=== PATIENT | male | born 1990 | race Caucasian/White ===

== ENCOUNTER 2019-09-13 19:26 | Emergency (ER) | payer OTHER ==
[2019-09-13] MEDS ORDERED: NA CHLORIDE 0.9% 1,000 ML ONE (20:39)
[2019-09-13 21:19] LABS: Absolute Lymphocytes (CBC) 2.6 K/uL (0.7-4.9); Basophils % 1.1 % (0-1.3); Lymphocytes % 26.8 % (15.3-44.8); MPV 8.5 fL (7.6-11.3)
[2019-09-13 21:21] LABS: Albumin 3.9 g/dL (3.4-5.0); Bilirubin Direct 0.2 mg/dL (0-0.2); Bilirubin Total 0.8 mg/dL (0.2-1.0); Potassium 3.4 mmol/L (3.5-5.1); Protein, Total 7.4 g/dL (6.4-8.2)
[2019-09-13] MEDS ORDERED: CLINDAMYCIN 900MG/D5W 900 MG/50 ML IVPB IV ONE (23:08)
--- NOTE | 2019-09-13 23:26 | ER ---
Nurse's Notes [facility] Name: Shirley Houston Age: 29 yrs Sex: Male : 1990 Arrival Date: 09/13/2019 Time: 19:36 Bed 26 Private MD: Diagnosis: Cellulitis of abdominal wall Presentation: 09/13 20:04 Presenting complaint: Patient states: Redness and pain to the umbilical area since aj1 yesterday. Denies fever. Denies N/V/D. Transition of care: patient was not received from another setting of care. Onset of symptoms was September 2019. Risk Assessment: Do you want to hurt yourself or someone else? Patient reports no desire to harm self or others. Initial Sepsis Screen: Does the patient meet any 2 criteria? No. Patient's initial sepsis screen is negative. Does the patient have a suspected source of infection? No. Patient's initial sepsis screen is negative. Care prior to arrival: None. 20:04 Method Of Arrival: Ambulatory aj1 20:04 Acuity: LARY 3 aj1 Triage Assessment: 20:06 General: Appears in no apparent distress. comfortable, Behavior is calm, cooperative, aj1 appropriate for age. Pain: Complains of pain in umbilical area Pain currently is 6 out of 10 on a pain scale. Neuro: Level of Consciousness is awake, alert, obeys commands. Cardiovascular: Patient's skin is warm and dry. Respiratory: Airway is patent Respiratory effort is even, unlabored, Respiratory pattern is regular, symmetrical. GI: Patient currently denies diarrhea, nausea, vomiting. Historical: - Allergies: 20:06 No Known Allergies; aj1 - Home Meds: 20:06 None [Active]; aj1 - PMHx: 20:06 None; aj1 - PSHx: 20:06 None; aj1 - Immunization history:: Flu vaccine is not up to date. - Social history:: Smoking status: Patient/guardian denies using tobacco. - Ebola Screening: : Patient denies travel to an Ebola-affected area in the 21 days before illness onset. Screenin:19 Abuse screen: Denies threats or abuse. Denies injuries from another. Nutritional aa1 screening: No deficits noted. Tuberculosis screening: No symptoms or risk factors identified. Fall Risk None identified. Assessment: 20:19 General: Appears in no apparent distress. comfortable, Behavior is calm, cooperative, aa1 appropriate for age. Pain: Complains of pain in umbilical area Quality of pain is described as stinging, Pain began 1 day ago. Neuro: Level of Consciousness is awake, alert, obeys commands, Oriented to person, place, time, situation, Moves all extremities. Full function Gait is steady. Respiratory: Airway is patent Respiratory effort is even, unlabored, Respiratory pattern is regular, symmetrical. GI: Abdomen is non-distended, Abd is soft and non tender X 4 quads. Reports tenderness around umbilicus Patient currently denies constipation, diarrhea, nausea, vomiting. : No signs and/or symptoms were reported regarding the genitourinary system. EENT: No signs and/or symptoms were reported regarding the EENT system. Derm: Skin is intact, is healthy with good turgor, Skin is pink, warm \T\ dry. redness noted around umbilicus. Musculoskeletal: Circulation, motion, and sensation intact. Capillary refill < 3 seconds. 21:30 Reassessment: Patient appears in no apparent distress at this time. Patient and/or aa1 family updated on plan of care and expected duration. Pain level reassessed. Patient is alert, oriented x 3, equal unlabored respirations, skin warm/dry/pink. Awaiting CT scan. 22:33 Reassessment: Patient appears in no apparent distress at this time. Patient and/or aa1 family updated on plan of care and expected duration. Pain level reassessed. Patient is alert, oriented x 3, equal unlabored respirations, skin warm/dry/pink. Awaiting CT results. 22:40 Reassessment: Pt reports he noticed some liquid in his navel. Upon inspections foul aa1 smelling purulent drainage noted. Sterile q-tip placed inside navel and approx 3 ml purulent fluid drained out from navel. PA notified. Vital Signs: 20:06 BP 132 / 78; Pulse 65; Resp 16; Temp 97.8; Pulse Ox 100% on R/A; Weight 111.58 kg (R); aj1 Height 6 ft. 3 in. (190.50 cm) (R); 21:08 BP 130 / 73; Pulse 55; Resp 16; Pulse Ox 100% on R/A; Pain 3/10; aa1 20:06 Body Mass Index 30.75 (111.58 kg, 190.50 cm) aj1 ED Course: 19:36 Patient arrived in ED. cf2 20:05 Triage completed. aj1 20:06 Arm band placed on Patient placed in an exam room. aj1 20:10 Johann Daniel PA is PHCP. cp 20:10 Yoan Hwang MD is Attending Physician. cp 20:19 Patient has correct armband on for positive identification. Bed in low position. Call aa1 light in reach. Pulse ox on. NIBP on. 20:20 Annie Pinto, RN is Primary Nurse. aa1 20:49 Radiology exam delayed due to lab results not completed at this time. (BUN/Creatinine). vm2 20:50 Initial lab(s) drawn, by me, sent to lab. Inserted saline lock: 20 gauge in right aa1 antecubital area, using aseptic technique. Blood collected. 22:03 CT Abd/Pelvis - IV Contrast Only In Process Unspecified. EDMS 22:47 Wound culture swab sent to lab. aa1 22:58 Report given to Dre Ferraro RN. aa1 23:01 Dre Ferraro, IRAJ is Primary Nurse. tr5 23:25 Bryce Ritter MD is Referral Physician. cp 23:51 No provider procedures requiring assistance completed. IV discontinued. tr5 Administered Medications: 20:50 Drug: NS 0.9% 1000 ml Route: IV; Rate: 1 bolus; Site: right antecubital; aa1 22:02 Follow up: IV Status: Completed infusion; IV Intake: 1000ml aa1 23:22 Drug: Clindamycin 900 mg Route: IVPB; Infused Over: 30 mins; Site: right antecubital; tr5 23:27 CANCELLED (Physician Discretion): TORadol 30 mg IVP once cp 23:51 Drug: Bactrim (160 mg-800 mg (DS) 1 tablet Route: PO; tr5 23:51 Follow up: Response: Medication administered at discharge. tr5 Intake: 22:02 IV: 1000ml; Total: 1000ml. aa1 Outcome: 23:25 Discharge ordered by . cp 23:51 Discharged to home ambulatory, with family. tr5 23:51 Condition: stable 23:51 Discharge instructions given to patient, family, Instructed on discharge instructions, follow up and referral plans. medication usage, Demonstrated understanding of instructions, follow-up care, medications. 23:53 Patient left the ED. tr5 Signatures: Dispatcher [employer] EDSunita Pillai RN RN aj1 Annie Pinto RN RN aa1 Johann Daniel PA PA cp McGuire, Victoria 2 Dre Ferraro RN RN tr5 Amy [facility]
--- NOTE | 2019-09-13 23:26 | EDPHYS ---
Physician Documentation [facility] Name: Shirley Houston Age: 29 yrs Sex: Male : 1990 Arrival Date: 09/13/2019 Time: 19:36 Bed 26 Private MD: ED Physician Yoan Hwang HPI: 09/13 20:25 This 29 yrs old Male presents to ER via Ambulatory with complaints of cp Abdominal Problem. 20:25 The patient presents with abdominal pain in the periumbilical area. cp 20:25 Onset: The symptoms/episode began/occurred yesterday. The symptoms do not radiate. cp Associated signs and symptoms: Pertinent negatives: anorexia, blood in stools, chest pain, constipation, diarrhea, dysuria, fever, testicular pain. The symptoms are described as constant. Modifying factors: the symptoms are aggravated by pressure. Historical: - Allergies: 20:06 No Known Allergies; aj1 - Home Meds: 20:06 None [Active]; aj1 - PMHx: 20:06 None; aj1 - PSHx: 20:06 None; aj1 - Immunization history:: Flu vaccine is not up to date. - Social history:: Smoking status: Patient/guardian denies using tobacco. - Ebola Screening: : Patient denies travel to an Ebola-affected area in the 21 days before illness onset. ROS: 20:30 Constitutional: Negative for body aches, chills, fever, poor PO intake. cp 20:30 Eyes: Negative for injury, pain, redness, and discharge. cp 20:30 ENT: Negative for drainage from ear(s), ear pain, sore throat, difficulty swallowing, cp difficulty handling secretions. 20:30 Cardiovascular: Negative for chest pain, palpitations. 20:30 Respiratory: Negative for cough, shortness of breath, wheezing. 20:30 Abdomen/GI: Positive for abdominal pain, Negative for nausea, vomiting, and diarrhea, constipation, anorexia. 20:30 Back: Negative for pain at rest, pain with movement, radiated pain. 20:30 : Negative for urinary symptoms, testicular pain 20:30 Skin: Positive for erythema, of the umbilical area. 20:30 Neuro: Negative for altered mental status, dizziness, headache, weakness. cp 20:30 All other systems are negative. Exam: 20:40 Constitutional: The patient appears in no acute distress, alert, awake, non-toxic, well cp developed, well nourished. 20:40 Head/Face: Normocephalic, atraumatic. cp 20:40 Eyes: Periorbital structures: appear normal, Conjunctiva: normal, no exudate, no injection, Sclera: no appreciated abnormality, Lids and lashes: appear normal, bilaterally. 20:40 ENT: External ear(s): are unremarkable, Nose: is normal, Mouth: is normal, Posterior pharynx: is normal, airway is patent, no erythema, no exudate. 20:40 Chest/axilla: Inspection: normal, Palpation: is normal, no crepitus, no tenderness. 20:40 Cardiovascular: Rate: normal, Rhythm: regular. 20:40 Respiratory: the patient does not display signs of respiratory distress, Respirations: normal, no use of accessory muscles, no retractions, no splinting, no tachypnea, labored breathing, is not present, Breath sounds: are clear throughout, no decreased breath sounds, no stridor, no wheezing. 20:40 Abdomen/GI: Bowel sounds: active, all quadrants, Palpation: soft, in all quadrants, moderate abdominal tenderness, in the umbilical area, rebound tenderness, is not appreciated, voluntary guarding, is elicited in the umbilical area. 20:40 Back: pain, is absent, ROM is normal. 20:40 Skin: cellulitis, that is mild, irregular, on the umbilical area. Vital Signs: 20:06 BP 132 / 78; Pulse 65; Resp 16; Temp 97.8; Pulse Ox 100% on R/A; Weight 111.58 kg (R); aj1 Height 6 ft. 3 in. (190.50 cm) (R); 21:08 BP 130 / 73; Pulse 55; Resp 16; Pulse Ox 100% on R/A; Pain 3/10; aa1 20:06 Body Mass Index 30.75 (111.58 kg, 190.50 cm) aj1 MDM: 20:19 Patient medically screened. cp 20:45 Differential diagnosis: appendicitis, bowel obstruction, cholecystitis, Cholelithiasis, cp urinary tract infection, abscess, cellulitis. 23:25 Data reviewed: vital signs, nurses notes, lab test result(s), radiologic studies, CT cp scan. 23:25 Counseling: I had a detailed discussion with the patient and/or guardian regarding: the cp historical points, exam findings, and any diagnostic results supporting the discharge/admit diagnosis, lab results, radiology results, to return to the emergency department if symptoms worsen or persist or if there are any questions or concerns that arise at home. Response to treatment: the patient's symptoms have markedly improved after treatment, and as a result, I will discharge patient. 09/13 20:23 Order name: Basic Metabolic Panel; Complete Time: 21:39 cp 09/13 21:39 Interpretation: Normal except: K 3.4; GFR 89. cp 09/13 20:23 Order name: CBC with Diff; Complete Time: 21:39 cp 09/13 21:40 Interpretation: Reviewed. 09/13 20:23 Order name: Creatinine for Radiology; Complete Time: 21:39 cp 09/13 20:23 Order name: Hepatic Function; Complete Time: 21:39 cp 09/13 21:40 Interpretation: Reviewed. 09/13 20:23 Order name: Lipase; Complete Time: 21:39 cp 09/13 22:51 Order name: Wound Culture cp 09/13 20:23 Order name: IV Saline Lock; Complete Time: 21:10 cp 09/13 20:23 Order name: Labs collected and sent; Complete Time: 21:10 cp 09/13 20:23 Order name: CT Abd/Pelvis - IV Contrast Only cp Administered Medications: 20:50 Drug: NS 0.9% 1000 ml Route: IV; Rate: 1 bolus; Site: right antecubital; aa1 22:02 Follow up: IV Status: Completed infusion; IV Intake: 1000ml aa1 23:22 Drug: Clindamycin 900 mg Route: IVPB; Infused Over: 30 mins; Site: right antecubital; tr5 23:27 CANCELLED (Physician Discretion): TORadol 30 mg IVP once cp 23:51 Drug: Bactrim (160 mg-800 mg (DS) 1 tablet Route: PO; tr5 23:51 Follow up: Response: Medication administered at discharge. tr5 Disposition: 09/13/19 23:25 Discharged to Home. Impression: Cellulitis of abdominal wall. - Condition is Stable. - Discharge Instructions: Cellulitis, Adult. - Prescriptions for Clindamycin HCl 300 mg Oral Capsule - take 1 capsule by ORAL route every 6 hours for 10 days; 40 capsule. Bactrim DS 800- 160 mg Oral Tablet - take 1 tablet by ORAL route every 12 hours for 10 days; 20 tablet. Tramadol 50 mg Oral Tablet - take 1 tablet by ORAL route every 8 hours as needed; 12 tablet. - Medication Reconciliation Form, Thank You Letter, Antibiotic Education, Prescription Opioid Use form. - Follow up: Bryce Ritter MD; When: 2 - 3 days; Reason: Worsening of condition. - Problem is new. - Symptoms have improved. Signatures: Dispatcher [employer] EDSunita Pillai RN RN aj1 Annie Pinto RN RN aa1 Johann Daniel PA PA Dre Ritchie RN RN tr5 Corrections: (The following items were deleted from the chart) 23:27 23:26 TORadol 30 mg IVP once ordered. cp cp 23:53 23:25 09/13/2019 23:25 Discharged to Home. Impression: Cellulitis of abdominal wall. tr5 Condition is Stable. Forms are Medication Reconciliation Form, Thank You Letter, Antibiotic Education, Prescription Opioid Use. Follow up: Bryce Ritter; When: 2 - 3 days; Reason: Worsening of condition. Problem is new. Symptoms have improved. cp
[2019-09-13] MEDS ORDERED: SMZ./TMP. 800/160 MG TABLET ONE (23:32)
[2019-09-14 00:42] VITALS: TEMP 97.8; O2SAT 100
[2019-09-14 00:44] VITALS: BP 130/73
--- NOTE | 2019-09-16 13:52 | RAD REPORT ---
EXAM DESCRIPTION: CT - Abdomen Pelvis W Contrast - 09/14/2019 1:36 am CLINICAL HISTORY: Umbilical pain. TECHNIQUE: CT scan of the abdomen and pelvis was performed with intravenous contrast. 5 mm axial images were obtained along with coronal and sagittal reformatted images. DOSE OPTIMIZATION: This facility uses dose optimization techniques as appropriate to perform exams, including at least one of the following techniques: 1. Automated exposure control. 2. Adjustment of the mA and/or kV according to patient size (this includes techniques or standardized protocols for targeted exams where dose is matched to the indication/reason for exam, i.e. extremiti es or head). 3. Use of iterative reconstructive technique. INTRAVENOUS CONTRAST: Not documented. Please refer to medical record. COMPARISON: None. FINDINGS: Lung Bases: Normal. Liver: Normal. Spleen: Normal. Pancreas: Normal. Gallbladder: Normal. Adrenal Glands: Normal. Kidneys: Normal. Retroperitoneal Structures: Normal. Bowel Survey: There is increased stool within the ascending and transverse colon. The distal ileum is unremarkable. The appendix is unremarkable. Prostate Gland: Normal in size. Urinary Bladder: Normal. Peritoneal Cavity: Normal. Mesenteric Structures: Normal. Abdominal Wall: There is a small fluid collection at the base of the umbilicus along with diffuse dermal thickening o f the umbilicus. Findings consistent with omphalitis. A developing abscess should be considered. The fluid collection measures 1.7 x 0.9 cm. Bony Structures: No suspicious lesions. IMPRESSION: 1. Evidence of omphalitis with probable developing abscess formation. 2. Increased stool within the ascending and transverse colon. Electronically signed by: Rasheed Thomas MD 09/13/2019 10:24 PM TRAIN STARTER Due to temporary technical issues with the PACS/Fluency reporting system, reports are being signed by the in house radiologist as a courtesy to ensure prompt reporting. The interpreting radiologist is f ully responsible for the content of the report.
== END 2019-09-13 23:53 | disposition home or self-care (01) ==
LOC: ER 19:26
DX: L03.311 Cellulitis of abdominal wall (principal)
CPT/HCPCS: 36415; 74177; 80048; 80076; 83690; 85025; 87070; 87205; 96361; 96374; 99284; J7030; Q9967